=== PATIENT | female | born 1960 | race Caucasian/White ===

== ENCOUNTER 2017-10-27 10:31 | Day surgery (SDC) | payer MEDICARE ==
[2017-10-27] MEDS ORDERED: ceFAZolin 1 gm in NS 1 GM/100 ML BAG IVPB ONE (12:18)
[2017-10-27] MEDS ORDERED: Lactated Ringer's 1,000 ML IV ONE ×3 (12:33→14:32)
[2017-10-27] MEDS ORDERED: Propofol 10 mg/ml Inj (20 ML) ONE (12:39)
[2017-10-27] MEDS ORDERED: Midazolam 2 MG/2 ML VIAL ONE (12:39)
[2017-10-27] MEDS ORDERED: Iohexol 240 (50 ml) ONE (13:22)
[2017-10-27] MEDS ORDERED: Neostigmine Methylsulfate 3mg/3ml Syringe IV ONE (13:36)
[2017-10-27] MEDS ORDERED: Oxycodone/Acetaminophen 5/325 mg Tab PO PRN (13:53)
[2017-10-27] MEDS ORDERED: HYDROmorphone 0.5 mg/0.5 ml ISec IVP PRN (14:15)
[2017-10-27] MEDS ORDERED: Lactated Ringer's 1,000 ML IV SCH (14:15)
[2017-10-27 18:15] VITALS: BP 133/79; PULSE 91; RESP 18; TEMP 97.7; O2SAT 96
--- NOTE | 2017-10-28 01:21 | OP ---
PROCEDURE DATE: 10/27/2017 PREOPERATIVE DIAGNOSES: Biliary colic and cholecystitis with large umbilical hernia. POSTOPERATIVE DIAGNOSES: Biliary colic and cholecystitis with large umbilical hernia. PROCEDURE PERFORMED: 1. Laparoscopic cholecystectomy. 2. Repair of liver bleeding. 3. Repair of incarcerated umbilical hernia. SURGEON: David Schreiber MD BATCH WEIGHER: Dr. Mendoza. ANESTHESIA: General anesthesia. ESTIMATED BLOOD: 30 mL. POSTOPERATIVE CONDITION: Stable. INDICATIONS FOR SURGERY: This is a 57-year-old female who presents with a history of abdominal pain secondary to gallstones. She also has an incarcerated umbilical hernia and will now undergo repair of the hernia along with the laparoscopic cholecystectomy. DESCRIPTION OF PROCEDURE: The patient was taken to the operating room. General anesthesia was administered. The abdomen was prepped and draped. A transverse umbilical incision was made using a 15-Blade and a large umbilical hernia sac was almost immediately encountered. This was dissected and free down to the fascial layer, and the fascia was transected using the Bovie. The hernia sac was excised, and at this point, a blunt port was inserted through the hernia defect. The abdomen was insufflated with CO2, and under direct vision, the remaining ports were placed for any epigastric space to and laterally in the right upper quadrant. Gallbladder was retracted and the cystic duct was carefully dissected free. The cystic duct gallbladder, cystic duct common duct junction were carefully identified. Cystic duct was then clipped and divided. Cystic artery was dissected free, clipped, and divided. The gallbladder was removed from the bed using the cautery. Bleeding in the bed was controlled using small complex was repaired laparoscopically medial to the liver bed. The abdomen was irrigated with saline until clear. The ports were removed, and the umbilical hernia defect was closed with a running 0 Prolene suture. The wound was irrigated with saline, and the remaining incisions were closed with clips. The patient tolerated the procedure well. Returned to recovery room in stable condition. David Schreiber MD
== END 2017-10-27 18:00 | disposition home or self-care (01) ==
LOC: C.SDS 10:31
PROVIDERS: ATTEND Surgery
DX: K80.10 Calculus of gallbladder with chronic cholecystitis without obstruction (principal); K42.9 Umbilical hernia without obstruction or gangrene; K42.0 Umbilical hernia with obstruction, without gangrene; I10 Essential (primary) hypertension; J38.3 Other diseases of vocal cords
CPT/HCPCS: 47562; 49587; 82948; 88302; 88304; C1713; J0690; J1170; J2250; J2405; J2704; J2710; J3010; J7120